=== PATIENT | female | born 1995 ===

== ENCOUNTER 2018-06-07 12:10 | Emergency (ER) | payer OTHER ==
--- OUTSIDE RECORDS SUMMARY | 2018-06-07 12:11 | XMS REPORT ---
:1995 [facility] Address [address] [place] [address] Dr. Vásquez. [address] [place] [address] Care Team Providers Name Role Phone Unavailable Unavailable Unavailable Problems This patient has no known problems. Allergies, Adverse Reactions, Alerts This patient has no known allergies or adverse reactions. Medications This patient has no known medications.
--- NOTE | 2018-06-07 14:24 | RAD REPORT ---
EXAM DESCRIPTION: RAD - Tib Fib Right - 06/07/2018 1:42 pm CLINICAL HISTORY: Leg ankle and foot pain, twisting injury COMPARISON: None. FINDINGS: No fracture is identified. There is no dislocation or periosteal reaction noted. No acute or suspicious bony finding. No foreign body or other soft tissue abnormality. IMPRESSION: Negative right tibia & fibula examination.
--- NOTE | 2018-06-07 14:25 | RAD REPORT ---
EXAM DESCRIPTION: RAD - Ankle Right 3 View - 06/07/2018 1:42 pm CLINICAL HISTORY: Ankle pain, ankle injury COMPARISON: None. FINDINGS: No fracture, dislocation or periosteal reaction. No joint effusion seen. No joint space na rrowing. No soft tissue abnormality. IMPRESSION: Negative right ankle
--- NOTE | 2018-06-07 14:38 | EDPHYS ---
Physician Documentation [facility] Name: Ayala Tsang Age: 23 yrs Sex: Female : 1995 Arrival Date: 06/07/2018 Time: 12:13 Bed 25 Private MD: None, None ED Physician Saravanan Trujillo HPI: 06/07 12:37 This 23 yrs old Unknown Female presents to ER via Wheelchair with complaints of Ankle jmm Injury. 12:37 The patient presents with an injury, pain. Onset: The symptoms/episode began/occurred jmm acutely, last night. Associated signs and symptoms: Pertinent negatives: fever, numbness. This is a 23 year old female with no chronic medical conditions that presents to the ED with right knee pain beginning yesterday after tripping on a door step. Patient denies other injury. . Historical: - Allergies: 12:16 No Known Allergies; sv - PMHx: 12:16 None; sv - PSHx: 12:16 None; sv - Immunization history:: Flu vaccine is not up to date. - Social history:: Smoking status: Patient/guardian denies using tobacco. - Ebola Screening: : No symptoms or risks identified at this time. ROS: 12:37 Constitutional: Negative for fever, chills, and weight loss. jmm 12:37 MS/extremity: Positive for injury or acute deformity, pain. 12:37 All other systems are negative. Exam: 12:37 Head/Face: atraumatic. Eyes: EOMI, no conjunctival erythema appreciated ENT: Moist jmm Mucus Membranes Neck: Trachea midline, Supple Chest/axilla: Normal chest wall appearance and motion. Cardiovascular: Regular rate and rhythm. No edema appreciated Respiratory: Normal respirations, no respiratory distress appreciated Abdomen/GI: Non distended, soft Back: Normal ROM Skin: General appearance color normal 12:37 Constitutional: The patient appears in no acute distress, alert, awake. 12:37 Musculoskeletal/extremity: no bony pain is apprecaited to the lower tibia or the right metatarsals, full dorsalis pedis pulses are apprecaited, compartments are soft, NVI. Pain is elicited on dorsiflexion. . 12:37 Skin: Appearance: Color: normal in color. 12:37 Neuro: Orientation: is normal, Mentation: is normal, Memory: is normal. 12:37 Psych: Behavior/mood is pleasant, cooperative. Vital Signs: 12:16 BP 116 / 70; Pulse 99; Resp 16; Temp 97.5; Pulse Ox 98% ; Weight 102.51 kg; Height 5 sv ft. 8 in. (172.72 cm); Pain 0/10; 12:16 Body Mass Index 34.36 (102.51 kg, 172.72 cm) sv MDM: 12:37 Patient medically screened. [facility] 14:34 Data reviewed: vital signs, nurses notes. Counseling: I had a detailed discussion with [facility] the patient and/or guardian regarding: the historical points, exam findings, and any diagnostic results supporting the discharge/admit diagnosis, radiology results, the need for outpatient follow up, to return to the emergency department if symptoms worsen or persist or if there are any questions or concerns that arise at home. ED course: Patient advised to follow up with orthopedics for further evaluation with possible repeat of xray in 1 week if symptoms continue. Patient understood and agrees with the plan of care. . 06/07 12:42 Order name: Tib Fib Right XRAY; Complete Time: 14:26 [facility] 06/07 12:42 Order name: Ankle Right 3 View XRAY; Complete Time: 14:26 [facility] 06/07 14:27 Order name: Babatunde wrap-joint; Complete Time: 14:48 [facility] 06/07 14:27 Order name: Crutches; Complete Time: 14:48 [facility] Administered Medications: No medications were administered Disposition: 17:28 Co-signature as Attending Physician, Saravanan Trujillo MD. Disposition: 06/07/18 14:37 Discharged to Home. Impression: Sprain of ankle. - Condition is Stable. - Discharge Instructions: Ankle Sprain. - Medication Reconciliation Form, Thank You Letter, Antibiotic Education, Prescription Opioid Use, Work release form form. - Follow up: Ronaldo Randolph MD; When: 2 - 3 days; Reason: Recheck today's complaints, Continuance of care, Re-evaluation by your physician. Signatures: Dispatcher [employer] Pamela Vega RN RN sv Mickail, Joel, PA PA Fei Duran RN RN la1 Starr, Gregory, MD MD Corrections: (The following items were deleted from the chart) 14:49 14:37 06/07/2018 14:37 Discharged to Home. Impression: Sprain of ankle. Condition is la1 Stable. Forms are Medication Reconciliation Form, Thank You Letter, Antibiotic Education, Prescription Opioid Use. Follow up: Dr. Ronaldo Randolph; When: 2 - 3 days; Reason: Recheck today's complaints, Continuance of care, Re-evaluation by your physician. ondina
--- NOTE | 2018-06-07 14:38 | ER ---
Nurse's Notes [facility] Name: Ayala Tsang Age: 23 yrs Sex: Female : 1995 Arrival Date: 06/07/2018 Time: 12:13 Bed 25 Private MD: None, None Diagnosis: Sprain of ankle Presentation: 06/07 12:16 Presenting complaint: Patient states: right ankle injury yesterday. Transition of care: sv patient was not received from another setting of care. Onset of symptoms was June 06, 2018. Care prior to arrival: None. 12:16 Method Of Arrival: Wheelchair sv 12:16 Acuity: BRIAN 4 sv 12:54 Risk Assessment: Do you want to hurt yourself or someone else? Patient reports no la1 desire to harm self or others. Initial Sepsis Screen: Does the patient meet any 2 criteria? No. Patient's initial sepsis screen is negative. Does the patient have a suspected source of infection? No. Patient's initial sepsis screen is negative. Triage Assessment: 12:16 General: Appears in no apparent distress. uncomfortable, well developed, Behavior is sv calm, cooperative, appropriate for age. Pain: Complains of pain in right ankle Pain currently is 0 out of 10 on a pain scale. at worst was 7 out of 10 on a pain scale. Pain began 1 day ago. Is continuous, Aggravated by weight bearing. Neuro: Level of Consciousness is awake, alert, obeys commands, Oriented to person, place, time, situation, Moves all extremities. Full function. Respiratory: Respiratory effort is even, unlabored, Respiratory pattern is regular, symmetrical. Musculoskeletal: Range of motion: limited in right ankle. Historical: - Allergies: 12:16 No Known Allergies; sv - PMHx: 12:16 None; sv - PSHx: 12:16 None; sv - Immunization history:: Flu vaccine is not up to date. - Social history:: Smoking status: Patient/guardian denies using tobacco. - Ebola Screening: : No symptoms or risks identified at this time. Screenin:54 Abuse screen: Denies threats or abuse. Nutritional screening: No deficits noted. la1 Tuberculosis screening: No symptoms or risk factors identified. Fall Risk None identified. Assessment: 12:53 General: Appears in no apparent distress. Behavior is calm, cooperative. Pain: la1 Complains of pain in right ankle. Neuro: Level of Consciousness is awake, alert, obeys commands, Oriented to person, place, time, situation. Cardiovascular: Capillary refill < 3 seconds Patient's skin is warm and dry. Respiratory: Airway is patent Respiratory effort is even, unlabored, Respiratory pattern is regular, symmetrical. GI: No signs and/or symptoms were reported involving the gastrointestinal system. Musculoskeletal: Circulation, motion, and sensation intact. Capillary refill < 3 seconds, Range of motion: limited in right ankle. 13:59 Reassessment: Patient and/or family updated on plan of care and expected duration. Pain la1 level reassessed. Vital Signs: 12:16 BP 116 / 70; Pulse 99; Resp 16; Temp 97.5; Pulse Ox 98% ; Weight 102.51 kg; Height 5 sv ft. 8 in. (172.72 cm); Pain 0/10; 12:16 Body Mass Index 34.36 (102.51 kg, 172.72 cm) sv ED Course: 12:13 Patient arrived in ED. dl4 12:13 None, None is Private Physician. dl4 12:16 Triage completed. sv 12:17 Arm band placed on Patient placed in an exam room. sv 12:18 Delfino Hunt PA is PHCP. jmm 12:18 Saravanan Trujillo MD is Attending Physician. [facility] 12:40 Fei Bajwa RN is Primary Nurse. la1 12:54 Call light in reach. la1 13:42 Tib Fib Right XRAY In Process Unspecified. EDMS 13:42 Ankle Right 3 View XRAY In Process Unspecified. EDMS 14:37 Ronaldo Randolph MD is Referral Physician. jmm 14:48 No provider procedures requiring assistance completed. Patient did not have IV access la1 during this emergency room visit. Administered Medications: No medications were administered Outcome: 14:37 Discharge ordered by . jmm 14:48 Discharged to home ambulatory, with crutches. la1 14:48 Condition: stable 14:48 Discharge instructions given to patient, Instructed on discharge instructions, follow up and referral plans. medication usage, Demonstrated understanding of instructions, follow-up care, crutch walking. 14:49 Patient left the ED. la1 Signatures: Dispatcher [employer] EDMS Pamela Hurley RN RN MickaDelfino oliveira PA PA jmm Attema, Lee, RN RN la1 David Sandoval dl4
[2018-06-07 15:03] VITALS: BP 116/70; TEMP 97.5; O2SAT 98
== END 2018-06-07 14:49 | disposition home or self-care (01) ==
LOC: ER 12:10
DX: S93.401A Sprain of unspecified ligament of right ankle, initial encounter (principal); W01.0XXA Fall on same level from slipping, tripping and stumbling without subsequent striking against object, initial encounter; Y93.9 Activity, unspecified; Y92.9 Unspecified place or not applicable
CPT/HCPCS: 99283